=== PATIENT | female | born 1935 | race Caucasian/White ===

== ENCOUNTER 2024-10-12 19:50 | Emergency (ER) | payer OTHER, MEDICAID ==
[~2024-10-12] VITALS: Ht 162.6 cm; Wt 65.8 kg
[2024-10-12 20:21] LABS: BASOPHILS % (AUTO) 0.2 % (0.0-2.0); EOSINOPHILS % (AUTO) 0.1 % (0.0-7.0); HEMATOCRIT 37.7 % (31.2-41.9); HEMOGLOBIN 12.4 g/dL (10.9-14.3); LYMPHOCYTES # (AUTO) 0.4 K/uL (0.8-4.8); LYMPHOCYTES % (AUTO) 3.7 % (20.5-51.5); MEAN CORPUSCULAR HEMOGLOBIN 29.5 uug (24.7-32.8); MEAN CORPUSCULAR HGB CONC 33 g/dL (32.3-35.6); MEAN CORPUSCULAR VOLUME 89.6 fL (75.5-95.3); MONOCYTES # (AUTO) 0.7 K/uL (0.1-1.30); MONOCYTES % (AUTO) 6.6 % (0.0-11.0); NEUTROPHILS # (AUTO) 8.9 K/uL (1.8-8.9); NEUTROPHILS % (AUTO) 89.4 % (38.5-71.5); PLATELET COUNT (AUTO) 206 K/uL (179-408); RED CELL DISTRIBUTION WIDTH 14.8 % (12.3-17.7); WHITE BLOOD COUNT (AUTO) 9.9 K/uL (3.8-11.8)
[2024-10-12 20:27] LABS: CALCIUM 9.1 mg/dL (8.5-10.1); CARBON DIOXIDE 30 mmol/L (21-32); CHLORIDE 106 mmol/L (98-107); CREATININE 0.7 mg/dL (0.6-1.3); GLUCOSE 164 mg/dL (74-106); POTASSIUM 3.6 mmol/L (3.5-5.1); SODIUM SERUM 145 mmol/L (136-145); UREA NITROGEN, BLOOD 20 mg/dL (7-18)
[2024-10-12] MEDS: IV NORMAL SALINE 500 ML BAG IV ONE (20:35)
[2024-10-12 20:36] LABS: ALANINE AMINOTRANSFERASE 342 U/L (14-59); ALBUMIN 3.3 g/dL (3.4-5.0); ALKALINE PHOSPHATASE 182 U/L (50-136); ASPARTATE AMINOTRANSFERASE 313 U/L (15-37); BILIRUBIN,DIRECT 2.6 mg/dL (0.0-0.2); BILIRUBIN,TOTAL 3.9 mg/dL (0.2-1.0); LIPASE 49 U/L (16-77); TOTAL PROTEIN, SERUM 6.9 g/dL (6.4-8.2)
[2024-10-12] MEDS ORDERED: FAMOTIDINE. 20 MG/2 ML VIAL IV ONE (20:37)
[2024-10-12] MEDS ORDERED: ONDANSETRON 4 MG/2 ML VIAL ONE (20:37)
[2024-10-12] MEDS ORDERED: MORPHINE SULFATE 4 MG/1 ML DISP.SYRIN ONE (20:37)
[2024-10-12] MEDS: FAMOTIDINE. 20 MG/2 ML VIAL IV ONE (20:38)
[2024-10-12] MEDS: ONDANSETRON 4 MG/2 ML VIAL IV ONE (20:38)
[2024-10-12] MEDS: MORPHINE SULFATE 2 MG/1 ML DISP.SYRIN IV ONE (20:38)
[2024-10-12 22:43] VITALS: O2SAT 96
== END 2024-10-13 03:27 | disposition short-term general hospital (02) ==
LOC: ER 19:50
DX: R10.10 Upper abdominal pain, unspecified (principal); R03.0 Elevated blood-pressure reading, without diagnosis of hypertension; R79.89 Other specified abnormal findings of blood chemistry; R11.2 Nausea with vomiting, unspecified; K83.8 Other specified diseases of biliary tract; E78.5 Hyperlipidemia, unspecified; G30.9 Alzheimer's disease, unspecified; F02.80 Dementia in other diseases classified elsewhere, unspecified severity, without behavioral disturbance, psychotic disturbance, mood disturbance, and anxiety; Z88.6 Allergy status to analgesic agent
CPT/HCPCS: 99285; 74176; 96374; 76705; 96375; 96361; 80076; 80048; 83690; 85025; 85730; 84484; 93005; J3490; J2405; J2270; A4606; A4663